=== PATIENT | male | born 1960 | race Caucasian/White ===

== ENCOUNTER 2019-01-08 09:04 | Outpatient (CLI) | payer OTHER ==
[2019-01-08] MEDS ORDERED: GADOBUTROL 10 MMOL/10 ML VIAL IVP ONE (11:28)
[2019-01-08] MEDS ORDERED: GADOBUTROL 10 MMOL/10 ML VIAL ONE (11:51)
--- NOTE | 2019-01-08 14:41 | MRI Report ---
Reason: R TEMPORAL MASS Procedure Date: 01/08/2019 Accession Number: [id number] / [id number] Procedure: MRI - Brain W/WO CPT Code: FULL RESULT: EXAM: MRI BRAIN WITHOUT AND WITH CONTRAST EXAM DATE: 01/08/2019 11:01 AM. CLINICAL HISTORY: History of right temporal lobe mass. COMPARISON: No prior brain imaging available for review at this time. TECHNIQUE: Multiplanar, multisequence T1-weighted and fluid-sensitive MR sequences of the brain were performed before and after administration of intravenous contrast. Sequences optimized for routine evaluation. Other: None. IV Contrast: Without and with 10 mL IV Gadavist. FINDINGS: Locally infiltrated with mildly expansile predominantly T2 hyperintense bubbly and somewhat cystic appearing anterior and medial right temporal lobe mass measuring as much as 3 cm transverse, 3 cm AP and 2.5 cm craniocaudal. Prominent associated T1 hypointensity raises the possibility of a cystic component. There is no evidence for enhancement. Medially this lesion appears to expand the temporal lobe uncus. The anterior aspect of the hippocampus appears to be slightly displaced posteriorly. Possible lesion extension posteriorly into the region of the cortex of the right sylvian fissure where there is mildly nodular irregularity and apparent cortical thickening. The gradient echo sequence shows multiple small nodular asymmetric foci of hypointense signal in the region of the right sylvian fissure for example on images 12 and 13 of series 801. No restricted diffusion. No hydrocephalus. Normal brain volume for age. There are a few scattered nonspecific nodular foci of white matter T2 hyperintensity in both cerebral hemispheres, potentially attributable to aging and chronic microangiopathy. Normal contrast opacification of the major dural venous sinuses. The major arterial skull base flow voids are present. Minimal nonspecific paranasal sinus mucosal thickening. Clear mastoids. No focal pathologic appearing marrow signal changes in the skull or clivus. IMPRESSION: 1. 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 Atypical cortical dysplasia might also be considered. The patient's age is not typical for dysembryoplastic neuroepithelial tumor though the anatomic appearance might suggest this process. Multinodular and vacuolating tumor of the cerebrum might also be considered. Absence of enhancement suggests this may less likely represent astrocytoma, oligodendroglioma or pleomorphic xanthoastrocytoma. Follow-up and/or comparison to prior imaging is suggested. 2. Small asymmetric nodular foci of gradient echo hypointensity in the region of the right sylvian fissure, these might represent blood products or calcification, correlation with CT may be helpful in this regard. 3. There are a few scattered punctate foci of nonspecific deep white matter T2 hyperintensity, likely attributable to aging and minimal chronic microangiopathy. [facility]
== END 2019-01-08 09:05 | disposition home or self-care (01) ==
LOC: DI 09:04
PROVIDERS: ATTEND Nurse Practitioner Adult Health
DX: G93.89 Other specified disorders of brain (principal)
CPT/HCPCS: 70553; A9585